=== PATIENT | male | born 1940 | race Caucasian/White ===

== ENCOUNTER 2018-09-01 05:59 | Day surgery (SDC) | payer MEDICARE, BC ==
[2018-09-01] MEDS ORDERED: Bupivacaine/Epinephrine 0.25% 30 ML VIAL ONE (06:33)
[2018-09-01] MEDS ORDERED: Bacitracin Zinc Ointment 30 gm TUBE ONE (06:33)
[2018-09-01] MEDS ORDERED: Fentanyl 100 MCG/2 ML VIAL ONE (07:02)
[2018-09-01] MEDS ORDERED: Midazolam HCl 2 mg/2 ml Vial ONE (07:02)
[2018-09-01] MEDS ORDERED: CEFAZOLIN 2 GM/50 ML BAG ONE (07:11)
[2018-09-01] MEDS ORDERED: Nitroglycerin 2% Ointment 1 INCH/1 GM Packet ONE ×2 (07:56→07:58)
[2018-09-01 09:23] LABS: CKMB 0.9 ng/mL (0-6.6); Troponin I Less than 0.010 ng/mL (< 0.028)
[2018-09-01 12:23] LABS: CKMB 1.3 ng/mL (0-6.6); Troponin I Less than 0.010 ng/mL (< 0.028)
[2018-09-01] MEDS ORDERED: PHENYLEPHRINE-NS 100 MCG/ML 10 ML SYRINGE ONE (14:02)
[2018-09-01] MEDS ORDERED: PROPOFOL 200 MG/20 ML VIAL ONE (14:02)
[2018-09-01] MEDS ORDERED: Ondansetron PF 4 MG/2 ML Vial ONE (14:02)
[2018-09-01] MEDS ORDERED: Dexamethasone 20 MG/5 ML VIAL ONE (14:02)
[2018-09-01] MEDS ORDERED: Glycopyrrolate 0.2 MG/ML 5 ML SYRINGE ONE (14:02)
[2018-09-01] MEDS ORDERED: Calcium Chloride 1 GM/10 ML Abboject SYRINGE ONE (14:02)
[2018-09-01] MEDS ORDERED: ePHEDrine/0.9% NaCl/PF SYRINGE 50 mg/10 ml ONE (14:02)
--- NOTE | 2018-09-01 14:03 | OP ---
DATE OF PROCEDURE: 09/01/2018 PREOPERATIVE DIAGNOSIS: Basal cell carcinoma of left scalp (C44.41). POSTOPERATIVE DIAGNOSIS: Basal cell carcinoma of left scalp (C44.41). PROCEDURE PERFORMED: Wide excision of basal cell carcinoma, scalp, 2.6 cm including adequate margins (59233). Complex closure of scalp, 8 cm (13252, 05273). DESCRIPTION OF PROCEDURE: Following induction of adequate anesthesia, the patient was prepped and draped in the usual sterile fashion in the supine fashion. The lesion was widely excised. Frozen section analysis came back as margins clear. The defect was undermined in a subgaleal fashion approximately 10 cm medially and 8 cm laterally. This allowed for closure with dog ears being taken out anteriorly and posteriorly. OPERATIVE FINDINGS: During the procedure, the patient had some intraoperative hypotension, that resolved, but he developed ST changes. He was taken to the recovery room for further evaluation. Job ID: [id number]
--- NOTE | 2018-09-01 15:27 | CON ---
DATE OF CONSULTATION: 09/01/2018 INDICATION FOR CONSULTATION: This is a 78-year-old gentleman, who underwent surgical procedure this morning with Dr. Tang for a skin cancer removal from the scalp and then began having EKG changes during the procedure and hypotension. HISTORY OF PRESENT ILLNESS: This is a very pleasant 78-year-old gentleman, who had intraoperative EKG changes with hypotension. He is now in the recovery area. His EKG at this time shows a normal sinus rhythm with no acute changes. He has had no previous cardiac history, but does say over the last year and a half he has noticed some occasional chest discomfort, but not associated with exertion. When he exerts himself, he has no discomfort. The pains just come and go, but they are infrequent, he may have one every 2 to 3 weeks and then they resolve and then again come for no apparent reason. His cardiac enzymes returned with a troponin I of 0.028, which is indeterminate after the surgical procedure, it may be related to demand ischemia associated with the hypotension during the anesthesia. He has had no other significant cardiac complaints. He had an EKG in 2017, which he reported it was okay. PAST MEDICAL HISTORY: Significant for skin cancer, which had been removed. He had a left hip replacement. He has had cataract surgery. SOCIAL HISTORY: He is . He has 4 children, with no heart disease. He has no tobacco abuse. He has occasional wine. He is a retired sales operations assistant. FAMILY HISTORY: His father had bypass surgery at age 50, but was a smoker. Mother at age 38 due to complications from rheumatic fever, most likely congestive heart failure. ALLERGIES: NONE. PRESENT MEDICATIONS: Please refer to the notes in the chart. REVIEW OF SYSTEMS: Twelve-point review of systems is unremarkable. PHYSICAL EXAMINATION: GENERAL: Reveals a well-developed and well-nourished gentleman. VITAL SIGNS: Blood pressure 132/72, heart rate of 78. HEENT: A right facial laceration, left frontal, and across the top of the scalp from anterior to posterior due to a large skin cancer that was removed earlier today. NECK: Otherwise, carotid pulses are present. There were no bruits. CHEST: Clear to auscultation without rales, rhonchi, or wheezing. CARDIOVASCULAR: Reveals a regular rate and rhythm with normal S1 and S2. There is no S3 or S4. There were no significant murmurs, heaves, thrills, bruits, or rubs. ABDOMEN: Soft and nontender. Positive bowel sounds are present. EXTREMITIES: No clubbing, cyanosis, or edema. Pedal pulses are present. NEUROLOGIC: The patient appears to be intact. SKIN: Warm and dry. He does have some oozing from the procedure earlier today. The incisional site is draining slightly. Otherwise, no significant abnormalities were noted. IMAGING STUDIES: EKG shows a normal sinus rhythm, no acute changes. IMPRESSION: 1. Abnormal EKG noted in the monitor during anesthesia with hypotension. We will continue to follow the patient. He has indeterminate cardiac enzymes. We will monitor the cardiac enzymes. We will repeat those in the next 4 hours. At this time, he is completely asymptomatic and the EKG is normal. I would suggest that once the patient becomes stable from his scalp incisions in the next week or two, he could undergo a stress testing; if there are any abnormalities, then he can proceed with further investigation as needed. 2. History of slightly elevated cholesterol. He is not on medications for it and says his cholesterol has been slightly elevated in the past. Otherwise, he appears to be stable. 3. Hypertension. We will continue his same medications. Otherwise, the patient appears to be stable from a cardiac standpoint at this time. Job ID: [id number] [facility]
--- NOTE | 2018-09-02 12:07 | CON ---
DATE OF CONSULTATION: Please note the troponin I was not 0.28, it was 0.028. This is not indicative of myocardial infarction. It looks like he has some ischemic changes due to the hypotension, but otherwise cardiac enzymes are within normal limits. We will repeat the cardiac enzymes to see if there are any changes. At this point, the patient again appears to be stable. Job ID: [id number] [facility]TDD
--- NOTE | 2018-09-03 21:43 | EKG ---
Test Reason : PREOP Blood Pressure : / mmHG Vent. Rate : 066 BPM Atrial Rate : 066 BPM P-R Int : 212 ms QRS Dur : 088 ms QT Int : 414 ms P-R-T Axes : 036 -24 006 degrees QTc Int : 434 ms Sinus rhythm with 1st degree A-V block Otherwise normal ECG No previous ECGs available Confirmed by Justo SHAIKH ([id number]) on 09/03/2018 9:43:30 PM Referred By: RAJAT Confirmed By:Justo SHAIKH
--- NOTE | 2018-09-03 21:44 | EKG ---
Test Reason : POST OP Blood Pressure : / mmHG Vent. Rate : 072 BPM Atrial Rate : 072 BPM P-R Int : 204 ms QRS Dur : 092 ms QT Int : 412 ms P-R-T Axes : 049 -21 -01 degrees QTc Int : 451 ms Normal sinus rhythm Normal ECG When compared with ECG of 01-SEP-2018 07:07, (Unconfirmed) No significant change was found Confirmed by Justo SHAIKH ([id number]) on 09/03/2018 9:43:47 PM Referred By: REANNA Confirmed By:Justo SHAIKH
== END 2018-09-01 14:30 | disposition home or self-care (01) ==
LOC: SDC 05:59
PROVIDERS: ATTEND Plastic Surgery
PROC: 0HB0XZZ Excision of Scalp Skin, External Approach (ICD-10-PCS; principal; 2018-09-01)
DX: C44.41 Basal cell carcinoma of skin of scalp and neck (principal); I95.89 Other hypotension; I10 Essential (primary) hypertension; E78.00 Pure hypercholesterolemia, unspecified; Z79.899 Other long term (current) drug therapy
CPT/HCPCS: 36415; 82553; 84484; 88305; 88331; 88332; 93005; 93010; J1100; J2250; J2405; J2704; J3010

== ENCOUNTER 2020-07-21 07:54 | Outpatient (CLI) | payer MEDICARE, OTHER ==
[2020-07-21 14:21] LABS: Hemoglobin 13.5 g/dL (14.0-18.0); Mean Corpuscular HGB CONC 33.1 g/dL (32.0-36.0); Mean Corpuscular Hemoglobin 31.9 pg (27.0-31.0); Mean Corpuscular Volume 96.6 fL (78.0-98.0); Mean Platelet Volume 7.6 fL (7.4-10.4); Platelet Count 274 thou/uL (130-400); RBC Distribution Width 12.7 % (11.5-14.5); Red Blood Cell (RBC) Count 4.23 mill/uL (4.70-6.10); White Blood Cell (WBC) Count 9.8 thou/uL (4.8-10.8)
[2020-07-21 14:41] LABS: Bacteria/HPF None Seen HPF (None Seen); Bilirubin Negative (Negative); Blood, Urine 1+ (Negative); Clarity Clear (Clear); Glucose, Urine (Dipstick) Normal (Negative); Ketone, Urine Negative (Negative); Leukocyte 250 Leu/uL (Negative); Nitrite Negative (Negative); Protein, Urine (Dipstick) Negative (Neg-Trace); RBC/HPF 0-3 HPF (0-3); Specific Gravity, Urine 1.009 (1.002-1.036); Squamous Epithelial None Seen HPF (0-3); Urobilinogen Normal mg/dL (Less than 2)
[2020-07-21 15:38] LABS: Anion Gap 15 mmol/L (10-20); BUN (Urea Nitrogen) 26 mg/dL (8.4-25.7); Calc. Creatinine Clearance 0 mL/min (70-130); Calcium 9.5 mg/dL (7.8-10.44); Carbon Dioxide 23 mmol/L (23-31); Chloride 104 mmol/L (98-107); Estimated GFR-MDRD 61; Glucose 109 mg/dL (83-110); Potassium 4.6 mmol/L (3.5-5.1); Sodium 137 mmol/L (136-145)
[2020-07-22 08:16] LABS: Total PSA Less than 0.1 ng/mL (0.0-4.0)
[2020-07-22 10:59] LABS: SARS-CoV-2 MS2 Positive; SARS-CoV-2 N Gene Negative; SARS-CoV-2 S Gene Negative; SARS-CoV-2 by NAA Not Detected (NotDetected); SARS-CoV-2 orf1ab Negative
--- NOTE | 2020-07-24 12:02 | EKG ---
Test Reason : PREOP Blood Pressure : / mmHG Vent. Rate : 068 BPM Atrial Rate : 068 BPM P-R Int : 208 ms QRS Dur : 088 ms QT Int : 408 ms P-R-T Axes : 013 -24 001 degrees QTc Int : 433 ms Normal sinus rhythm Normal ECG No previous ECGs available Confirmed by AYAH BOSTON (2) on 07/24/2020 12:01:46 PM Referred By: NEIL Confirmed By:AYAH BOSTON
== END 2020-07-21 07:55 | disposition home or self-care (01) ==
LOC: LABBT 07:54
PROVIDERS: ATTEND Urology
DX: Z01.818 Encounter for other preprocedural examination (principal); Z20.828 Contact with and (suspected) exposure to other viral communicable diseases; N39.3 Stress incontinence (female) (male)
CPT/HCPCS: 80048; 81001; 84153; 84154; 85027; 87086; 93005; U0003; 87077; 87635; 93010

== ENCOUNTER 2020-07-26 09:54 | Day surgery (SDC) | payer MEDICARE, OTHER ==
[2020-07-25 09:18] VITALS: BMI 28.2
[2020-07-26] MEDS ORDERED: PHENYLEPHRINE-NS 100 MCG/ML 10 ML SYRINGE ONE (11:41)
[2020-07-26] MEDS ORDERED: PROPOFOL 200 MG/20 ML VIAL ONE (11:41)
[2020-07-26] MEDS ORDERED: Glycopyrrolate 0.2 MG/ML 5 ML SYRINGE ONE (11:41)
[2020-07-26] MEDS ORDERED: Rocuronium Bromide 10 MG/ML (10ML VIAL) ONE (11:41)
[2020-07-26] MEDS ORDERED: Ondansetron PF 4 MG/2 ML Vial ONE (11:41)
[2020-07-26] MEDS ORDERED: EPHEDRINE 25 MG/5 ML SYRINGE ONE (11:41)
[2020-07-26] MEDS ORDERED: Lidocaine 1% PF 5 ML VIAL ONE (11:41)
[2020-07-26] MEDS ORDERED: Fentanyl 250 MCG/5 ML VIAL ONE (12:10)
[2020-07-26] MEDS ORDERED: Midazolam HCl 2 mg/2 ml Vial ONE (12:10)
[2020-07-26] MEDS ORDERED: Iothalamate Meglumine 60% 50 ML VIAL FS ONE (12:18)
[2020-07-26] MEDS ORDERED: Tobramycin 80 MG/2 ML VIAL ONE (12:18)
[2020-07-26] MEDS ORDERED: CEFAZOLIN 1 GM VIAL ONE (12:18)
[2020-07-26] MEDS ORDERED: Bupivacaine 0.25% HCL 30 ML VIAL ONE (12:18)
[2020-07-26] MEDS ORDERED: Gentamicin 240 MG in Sodium Chloride 0.9% 100 ML IVPB SCH (13:00)
[2020-07-26] MEDS ORDERED: Fentanyl 100 MCG/2 ML VIAL ONE (15:31)
--- NOTE | 2020-07-26 21:48 | OP ---
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 PROCEDURES PERFORMED: Placement of artificial urinary sphincter, 4 cm cuff; cystoscopy. ANESTHESIA: General. COMPLICATIONS: None. ESTIMATED BLOOD LOSS: 20 to 30 mL. SPECIMEN: None. DESCRIPTION OF PROCEDURE: After informed consent, the patient was taken to the operating room and transferred to the table on his own power. Anesthesia was established. A time-out was performed showing the correct patient, site, and procedure. Preoperative antibiotics were administered. He was prepped and draped in lithotomy position. A 14-Mozambican catheter was placed draining clear urine. 10 mL were instilled in the balloon and then this was plugged. A midline perineal incision was performed and carried down to the bulbospongiosus muscle with electrocautery. This was then sharply entered and the bulbar urethra circumferentially dissected. This was measured at 4 cm diameter. An appropriate sphincter was selected, prepped, and placed around the urethra. I then made a small incision in the right groin, through which I was able to track down upon the external ring and punctured the floor of this with a Nathalia clamp allowing blunt dissection of the space of Retzius. The pressure regulating balloon was placed here with 23 mL instilled in the balloon. Through the groin incision, I was able to dissect down to the scrotum and place the bulb. The bulb, balloon, and cuff were all connected with quick connectors. The cuff was then cycled and finally locked in the open position. Rigid cystoscopy was performed showing no evidence of urethral injury and no bladder neck contracture. The bladder was normal in appearance without mucosal abnormalities. Both ureters were effluxing clear urine. Both wounds were copiously irrigated and then closed in 2 deep layers with Vicryl suture before closing the skin incisions with Monocryl suture in a running subcuticular fashion. These were both dressed with Dermabond. At the end of the case, the Reyes catheter was removed. I ensured that the sphincter remained locked open. He was then awoken from anesthesia, transferred back to his hospital bed and taken to PACU in stable condition, where he will discharge home upon recovery to follow up in 5 weeks for activation of his artificial sphincter. Job ID: [id number]
== END 2020-07-26 16:53 | disposition home or self-care (01) ==
LOC: SDC 09:54
PROVIDERS: ATTEND Urology
PROC: 0THD8LZ Insertion of Artificial Sphincter into Urethra, Via Natural or Artificial Opening Endoscopic (ICD-10-PCS; principal; 2020-07-26)
DX: N39.3 Stress incontinence (female) (male) (principal); N32.0 Bladder-neck obstruction; I12.9 Hypertensive chronic kidney disease with stage 1 through stage 4 chronic kidney disease, or unspecified chronic kidney disease; N18.30 Chronic kidney disease, stage 3 unspecified; Z79.899 Other long term (current) drug therapy; Z85.46 Personal history of malignant neoplasm of prostate
CPT/HCPCS: 53445; C1813 ×2; C1815; J0690; J1580; J2250; J2405; J2704; J3010; J3260; J3370; J3490; S0020

== ENCOUNTER 2020-12-15 11:00 | Outpatient (CLI) | payer MEDICARE, OTHER | END 2020-12-15 11:01 | disposition home or self-care (01) | LOC: BICRAD 11:00 | PROVIDERS: ATTEND Internal Medicine | DX: M54.2 Cervicalgia (principal); M47.812 Spondylosis without myelopathy or radiculopathy, cervical region | CPT/HCPCS: 72040 ==

== ENCOUNTER 2021-01-10 12:42 | Outpatient (CLI) | payer MEDICARE, OTHER ==
[2021-01-10 14:01] LABS: Hemoglobin 12.7 g/dL (13.5-17.5); Mean Corpuscular HGB CONC 33.1 g/dL (32.0-36.0); Mean Corpuscular Hemoglobin 30.9 pg (27.0-33.0); Mean Corpuscular Volume 93.4 fl (81.2-95.1); Mean Platelet Volume 9.6 fl (7.4-10.4); Platelet Count 247 10x3/uL (150-450); RBC Distribution Width 15.5 % (11.5-14.5); Red Blood Cell (RBC) Count 4.11 10x6/uL (4.32-5.72); White Blood Cell (WBC) Count 10.4 10x3/uL (3.5-10.5)
[2021-01-10 14:27] LABS: Anion Gap 15 mmol/L (10-20); BUN (Urea Nitrogen) 22 mg/dL (8.4-25.7); Calc. Creatinine Clearance 0 mL/min (70-130); Calcium 8.9 mg/dL (7.8-10.44); Carbon Dioxide 25 mmol/L (23-31); Chloride 101 mmol/L (98-107); Glucose 101 mg/dL (83-110); Sodium 137 mmol/L (136-145)
[2021-01-11 01:20] LABS: SARS-CoV-2 PCR by NAA Not Detected (NotDetected)
== END 2021-01-10 12:43 | disposition home or self-care (01) ==
LOC: LABBT 12:42
PROVIDERS: ATTEND Urology
DX: Z01.818 Encounter for other preprocedural examination (principal); Z20.822 Contact with and (suspected) exposure to COVID-19
CPT/HCPCS: 80048; 85027; 93005; U0003; U0005; 87635; 93010

== ENCOUNTER 2021-01-13 07:39 | Day surgery (SDC) | payer MEDICARE, OTHER ==
[2021-01-11 15:12] VITALS: BMI 28.0
[2021-01-13] MEDS ORDERED: Bupivacaine 0.25% HCL 30 ML VIAL ONE (10:21)
[2021-01-13] MEDS ORDERED: Fentanyl 100 MCG/2 ML VIAL ONE (10:27)
[2021-01-13] MEDS ORDERED: Ketorolac Tromethamine 30 MG/ML VIAL ONE (10:36)
[2021-01-13] MEDS ORDERED: PROPOFOL 200 MG/20 ML VIAL ONE (10:36)
[2021-01-13] MEDS ORDERED: ePHEDrine Sulfate 50 MG/10 ML VIAL ONE (10:36)
[2021-01-13] MEDS ORDERED: Ondansetron PF 4 MG/2 ML Vial ONE (10:36)
[2021-01-13] MEDS ORDERED: Dexamethasone 20 MG/5 ML VIAL ONE (10:36)
[2021-01-13] MEDS ORDERED: Lidocaine 1% PF 5 ML VIAL ONE (10:36)
[2021-01-13] MEDS ORDERED: Sodium Chloride 0.9% 20 ML ONE (10:54)
== END 2021-01-13 12:55 | disposition home or self-care (01) ==
LOC: SDC 07:39
PROVIDERS: ATTEND Urology
PROC: 0TP Urinary System, Removal (ICD-10-PCS; principal; 2021-01-13)
DX: T83.111A Breakdown (mechanical) of implanted urinary sphincter, initial encounter (principal); N39.3 Stress incontinence (female) (male); N32.0 Bladder-neck obstruction; I10 Essential (primary) hypertension; Z85.46 Personal history of malignant neoplasm of prostate; Z79.899 Other long term (current) drug therapy
CPT/HCPCS: J0690; J1100; J1885; J2405; J2704; J3010; S0020

== ENCOUNTER 2025-08-04 08:00 | Outpatient (CLI) | payer MEDICARE, OTHER | END 2025-08-04 08:01 | disposition home or self-care (01) | LOC: PET 08:00 | PROVIDERS: ATTEND Urology | DX: C61 Malignant neoplasm of prostate (principal); R97.20 Elevated prostate specific antigen [PSA]; R59.0 Localized enlarged lymph nodes | CPT/HCPCS: 78815; A9595 ==